=== PATIENT | female | born 1995 ===

== ENCOUNTER 2017-03-03 06:55 | Day surgery (SDC) | payer MEDICAID ==
[2016-11-18 14:44] VITALS: BMI 19.5
[2017-03-03] MEDS ORDERED: ceFAZolin IV 1 gm in Dextrose 1 GM/50 ML BAG IVPB ONE (07:07)
[2017-03-03] MEDS ORDERED: Acetaminophen/Codeine elixir 120-12mg/5ml PO PRN (08:20)
[2017-03-03] MEDS ORDERED: Dextrose 5%/0.45% NS 1,000 ML IV SCH (08:30)
[2017-03-03] MEDS ORDERED: Lactated Ringer's 1,000 ML IV ONE (10:05)
[2017-03-03] MEDS ORDERED: Propofol 10 mg/ml Inj (20 ML) ONE (10:13)
[2017-03-03] MEDS ORDERED: Midazolam 2 MG/2 ML VIAL ONE (10:13)
[2017-03-03] MEDS ORDERED: Succinylcholine Chloride 20 mg/ml Syr (5 ml) IV ONE (10:15)
[2017-03-03] MEDS ORDERED: Rocuronium 10 mg/ml (5 ml) ONE (10:15)
[2017-03-03] MEDS ORDERED: Neostigmine Methylsulfate 3mg/3ml Syringe IV ONE (10:38)
[2017-03-03] MEDS ORDERED: HYDROmorphone 0.5 mg/0.5 ml ISec IVP PRN (10:46)
[2017-03-03] MEDS ORDERED: HYDROmorphone 0.5 mg/0.5 ml ISec ONE (10:58)
--- NOTE | 2017-03-03 11:40 | OP ---
PROCEDURE DATE: 03/03/2017. PREOPERATIVE DIAGNOSIS: Chronic tonsillitis. POSTOPERATIVE DIAGNOSIS: Chronic tonsillitis. PROCEDURE: Tonsillectomy. SIGNIFICANT FINDINGS: 2+ tonsils. DESCRIPTION OF PROCEDURE: The patient was brought into room, placed in supine position. Anesthesia was initiated through an ET tube. The patient was draped in the usual manner. Mouth gag was placed in the oral cavity, opened and suspended on the Weiss sampling expert the usual manner. The right tonsil was grabbed and pulled medially. Incision was made in the anterior tonsillar pillar using plasma knife. Dissections were done between tonsil and tonsillar fossa using plasma knife until the tonsil was removed. Bleeding was controlled using plasma knife. Next, the other tonsil was grabbed and pulled medially. Incision was made in the anterior tonsillar pillar using a plasma knife. Dissections were done between tonsil and tonsillar fossa using plasma knife until the tonsil was removed. Bleeding was controlled using a plasma knife. Both the tonsillar beds were rubbed vigorously with a plasma wand. No bleeding was noted. Mouth gag was let down for 30 seconds put back up. No bleeding was noted. The mouth gag was taken down and removed. The patient was taken off anesthesia and taken to recovery room in stable manner. Erik Givens MD MTDD
[2017-03-03 12:13] VITALS: RESP 18
[2017-03-03 12:41] VITALS: BP 118/67; PULSE 73; TEMP 97.8; O2SAT 99
== END 2017-03-03 12:30 | disposition home or self-care (01) ==
LOC: C.SDS 06:55
PROVIDERS: ATTEND Otolaryngology
DX: J35.01 Chronic tonsillitis (principal)
CPT/HCPCS: 42826; 88304; J0690; J1100; J1170; J2001; J2250; J2405; J2704; J2710; J2765; J3010; J7120